=== PATIENT | male | born 1960 | race Caucasian/White ===

== ENCOUNTER 2018-06-26 12:34 | Inpatient (IN) | payer OTHER ==
[2018-06-26 14:05] VITALS: BMI 30.7
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
[2018-06-26] MEDS ORDERED: MENTHOL/PHENOL 1 EACH UD MM PRN (19:57)
[2018-06-26] MEDS ORDERED: MAGNESIUM CITRATE 300 ML BOTTLE PO PRN (19:57)
[2018-06-26] MEDS ORDERED: METHOCARBAMOL 500 MG TABLET PO PRN (19:57)
[2018-06-26] MEDS ORDERED: MELATONIN 5 MG TABLETS PO PRN (19:57)
[2018-06-26] MEDS ORDERED: MAG HYDROX/AL HYDROX/SIMETH 30 ML UNIT-DOSE CUP PO PRN (19:57)
[2018-06-26] MEDS ORDERED: IBUPROFEN 400 MG TABLET (FP) PO PRN (19:57)
[2018-06-26] MEDS ORDERED: MAGNESIUM HYDROX 2400MG/30ML ORAL SUSPENSION 30 ML CUP PO PRN (19:57)
[2018-06-26] MEDS ORDERED: ACETAMINOPHEN 325 MG TABLET (FP) PO PRN ×2 (19:57)
[2018-06-26] MEDS ORDERED: NICOTINE POLACRILEX 2 MG GUM BUC PRN (19:57)
[2018-06-26] MEDS ORDERED: BISMUTH SUBSALICYLATE 524 MG/30 ML UD PO PRN (19:57)
[2018-06-26] MEDS ORDERED: ALBUTEROL SO4 0.083% IH SOL 2.5 MG/3 ML VIAL.NEB. NEB PRN (19:58)
[2018-06-26] MEDS ORDERED: cloNIDine HCL 0.1 MG TABLET PO PRN (20:00)
[2018-06-26] MEDS: chlordiazePOXIDE HCL 25 MG CAPSULE PO SCH (23:01)
[2018-06-26] MEDS: THIAMINE HCL 100 MG TABLET (FP) PO SCH (23:01)
[2018-06-26] MEDS: hydrOXYzine PAMOATE 25 MG CAPSULE (FP) PO PRN (23:01)
[2018-06-26] MEDS: INSULIN SLIDING SCALE (NOVOLOG) 1 VIAL SQ SCH (23:02)
[2018-06-27] MEDS: chlordiazePOXIDE HCL 25 MG CAPSULE PO SCH ×4 (06:21→22:56)
[2018-06-27] MEDS: INSULIN SLIDING SCALE (NOVOLOG) 1 VIAL SQ SCH ×4 (07:00→23:00)
[2018-06-27] MEDS ORDERED: METHADONE HCL 40 MG DISPERSABLE TABLET PO SCH (10:45)
[2018-06-27 10:53] LABS: HEMATOCRIT 40.6 % (35.4-49); MCH 28.8 pg (25.7-33.7); MEAN CELL VOLUME 90.1 fl (80-96); MEAN PLT VOLUME 11.1 fl (7.5-11.1); PLATELET COUNT 111 K/MM3 (134-434); RDW 14.9 % (11.9-15.9); WHITE BLOOD COUNT 3.9 K/mm3 (4.0-10.0)
[2018-06-27 11:04] LABS: ALBUMIN 2.9 g/dl (3.4-5.0); ALK PHOS 123 U/L (45-117); ANION GAP 4 MMOL/L (8-16); BILIRUBIN,TOTAL 0.7 mg/dL (0.2-1); BLOOD UREA NITROGEN 11 mg/dL (7-18); CHLORIDE 103 mmol/L (98-107); CO2 32 mmol/L (21-32); CREATININE 0.6 mg/dL (0.55-1.3); GLUCOSE,RANDOM 110 mg/dL (74-106); SGOT/AST 105 U/L (15-37); SGPT/ALT 86 U/L (13-61); SODIUM 139 mmol/L (136-145); TOT PROT 6.8 g/dl (6.4-8.2)
[2018-06-27] MEDS ORDERED: METHADONE HCL 40 MG DISPERSABLE TABLET ONE (11:32)
[2018-06-27] MEDS ORDERED: METHADONE HCL 10 MG TABLET ONE (11:32)
[2018-06-27] MEDS: PRENATAL VITAMINS W/ FOLIC ACID TABLET (FP) PO SCH (11:34)
[2018-06-27] MEDS: METHADONE 40 MG, METHADONE 20 MG PO SCH (11:34)
[2018-06-27] MEDS: chlordiazePOXIDE HCL 25 MG CAPSULE PO PRN ×2 (11:34→20:45)
--- NOTE | 2018-06-27 11:58 | PN ---
S CIWA - CIWA Score Nausea/Vomitin Muscle Tremors: 2 Anxiety: 2 Agitation: 2 Paroxysmal Sweats: 2 Orientation: 1-Uncertain about Date Tacttile Disturbances: 2-Mild Itch/Numbness/Burn Auditory Disturbances: 1-Very Mild Visual Disturbances: 1-Very Mild Sensitivity Headache: 2-Mild CIWA-Ar Total Score: 17 BHS Progress Note (SOAP) Subjective: Tremors, sweats, generalized weakness and pain Objective: 06/27/18 11:57 Vital Signs 06/27/18 06/27/18 08:23 09:37 Temperature 98.2 F 97.9 F Pulse Rate 77 94 H Respiratory 18 16 Rate Blood Pressure 140/77 119/59 L Laboratory Last Values WBC 3.9 K/mm3 (4.0-10.0) L 06/27/18 07:45 RBC 4.50 M/mm3 (4.00-5.60) 06/27/18 07:45 Hgb 13.0 GM/dL (11.7-16.9) 06/27/18 07:45 Hct 40.6 % (35.4-49) 06/27/18 07:45 MCV 90.1 fl (80-96) 06/27/18 07:45 MCH 28.8 pg (25.7-33.7) 06/27/18 07:45 MCHC 32.0 g/dl (32.0-35.9) 06/27/18 07:45 RDW 14.9 % (11.9-15.9) 06/27/18 07:45 Plt Count 111 K/MM3 (134-434) L 06/27/18 07:45 MPV 11.1 fl (7.5-11.1) 06/27/18 07:45 Sodium 139 mmol/L (136-145) 06/27/18 07:45 Potassium 4.0 mmol/L (3.5-5.1) 06/27/18 07:45 Chloride 103 mmol/L (98-107) 06/27/18 07:45 Carbon Dioxide 32 mmol/L (21-32) 06/27/18 07:45 Anion Gap 4 MMOL/L (8-16) L 06/27/18 07:45 BUN 11 mg/dL (7-18) 06/27/18 07:45 Creatinine 0.6 mg/dL (0.55-1.3) 06/27/18 07:45 Creat Clearance w eGFR 138.38 (>60) 06/27/18 07:45 POC Glucometer 101 UNITS (80-120) 06/27/18 11:44 Random Glucose 110 mg/dL (74-106) H 06/27/18 07:45 Calcium 8.0 mg/dL (8.5-10.1) L 06/27/18 07:45 Total Bilirubin 0.7 mg/dL (0.2-1) 06/27/18 07:45 AST 105 U/L (15-37) H 06/27/18 07:45 ALT 86 U/L (13-61) H 06/27/18 07:45 Alkaline Phosphatase 123 U/L (45-117) H 06/27/18 07:45 Total Protein 6.8 g/dl (6.4-8.2) 06/27/18 07:45 Albumin 2.9 g/dl (3.4-5.0) L 06/27/18 07:45 Labs noted Assessment: 06/27/18 11:57 Withdrawal sx Plan: Continue detox
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
[2018-06-27] MEDS: THIAMINE HCL 100 MG TABLET (FP) PO SCH (22:14)
[2018-06-28] MEDS ORDERED: METHADONE HCL 40 MG DISPERSABLE TABLET ONE (04:39)
[2018-06-28] MEDS ORDERED: METHADONE HCL 10 MG TABLET ONE (04:39)
[2018-06-28] MEDS: chlordiazePOXIDE HCL 25 MG CAPSULE PO SCH ×2 (06:08→12:40)
[2018-06-28] MEDS: METHADONE 40 MG, METHADONE 20 MG PO SCH (06:08)
[2018-06-28] MEDS: INSULIN SLIDING SCALE (NOVOLOG) 1 VIAL SQ SCH ×2 (07:11→17:14)
[2018-06-28] MEDS: PRENATAL VITAMINS W/ FOLIC ACID TABLET (FP) PO SCH (10:08)
--- NOTE | 2018-06-28 12:04 | PN ---
S CIWA - CIWA Score Nausea/Vomitin-No Nausea/No Vomiting Muscle Tremors: 2 Anxiety: 2 Agitation: 2 Paroxysmal Sweats: 2 Orientation: 0-Oriented Tacttile Disturbances: 0-None Auditory Disturbances: 0-None Visual Disturbances: 0-None Headache: 0-None Present CIWA-Ar Total Score: 8 S Progress Note (SOAP) Subjective: sleepy tired Objective: 06/28/18 12:02 Vital Signs Temperature 98.2 F 06/28/18 09:52 Pulse Rate 82 06/28/18 09:52 Respiratory Rate 20 06/28/18 09:52 Blood Pressure 119/54 L 06/28/18 09:52 O2 Sat by Pulse Oximetry (%) Laboratory Tests 06/26/18 06/27/18 06/27/18 21:45 06:27 07:45 WBC 3.9 L RBC 4.50 Hgb 13.0 Hct 40.6 MCV 90.1 MCH 28.8 MCHC 32.0 RDW 14.9 Plt Count 111 L MPV 11.1 Sodium Potassium Chloride Carbon Dioxide Anion Gap BUN Creatinine Creat Clearance w eGFR POC Glucometer 84 113 Random Glucose Calcium Total Bilirubin AST ALT Alkaline Phosphatase Total Protein Albumin RPR Titer 06/27/18 06/27/18 06/27/18 07:45 07:45 11:44 WBC RBC Hgb Hct MCV MCH MCHC RDW Plt Count MPV Sodium 139 Potassium 4.0 Chloride 103 Carbon Dioxide 32 Anion Gap 4 L BUN 11 Creatinine 0.6 Creat Clearance w eGFR 138.38 POC Glucometer 101 Random Glucose 110 H Calcium 8.0 L Total Bilirubin 0.7 AST 105 H ALT 86 H Alkaline Phosphatase 123 H Total Protein 6.8 Albumin 2.9 L RPR Titer Nonreactive 06/27/18 06/27/18 06/28/18 16:28 21:29 06:55 WBC RBC Hgb Hct MCV MCH MCHC RDW Plt Count MPV Sodium Potassium Chloride Carbon Dioxide Anion Gap BUN Creatinine Creat Clearance w eGFR POC Glucometer 112 82 83 Random Glucose Calcium Total Bilirubin AST ALT Alkaline Phosphatase Total Protein Albumin RPR Titer aaox3 ambulating no acute distress Assessment: 06/28/18 12:03 mild withdrawal Plan: continue detox with modified regimen increase fluids
[2018-06-28] MEDS: chlordiazePOXIDE 5 MG CAPSULE PO SCH (22:05)
[2018-06-28] MEDS: THIAMINE HCL 100 MG TABLET (FP) PO SCH (22:05)
[2018-06-28] MEDS ORDERED: chlordiazePOXIDE HCL 10 MG CAPSULE PO SCH (23:00)
[2018-06-28] MEDS ORDERED: chlordiazePOXIDE HCL 10 MG CAPSULE PO PRN (23:00)
[2018-06-29] MEDS ORDERED: METHADONE HCL 10 MG TABLET ONE (04:58)
[2018-06-29] MEDS ORDERED: METHADONE HCL 40 MG DISPERSABLE TABLET ONE (04:58)
[2018-06-29] MEDS: METHADONE 40 MG, METHADONE 20 MG PO SCH (05:46)
[2018-06-29] MEDS: INSULIN SLIDING SCALE (NOVOLOG) 1 VIAL SQ SCH ×2 (07:35→17:21)
[2018-06-29] MEDS ORDERED: ONDANSETRON *ODT* 4 MG TABLET SL PRN (09:43)
--- NOTE | 2018-06-29 09:49 | PN ---
BHS Progress Note (SOAP) Subjective: nausea/vomiting tired Objective: 06/29/18 09:49 Vital Signs Temperature 98.1 F 06/29/18 08:47 Pulse Rate 75 06/29/18 08:47 Respiratory Rate 18 06/29/18 08:47 Blood Pressure 145/78 06/29/18 08:47 O2 Sat by Pulse Oximetry (%) Laboratory Tests 06/26/18 06/27/18 06/27/18 21:45 06:27 07:45 WBC 3.9 L RBC 4.50 Hgb 13.0 Hct 40.6 MCV 90.1 MCH 28.8 MCHC 32.0 RDW 14.9 Plt Count 111 L MPV 11.1 Sodium Potassium Chloride Carbon Dioxide Anion Gap BUN Creatinine Creat Clearance w eGFR POC Glucometer 84 113 Random Glucose Calcium Total Bilirubin AST ALT Alkaline Phosphatase Total Protein Albumin RPR Titer 06/27/18 06/27/18 06/27/18 07:45 07:45 11:44 WBC RBC Hgb Hct MCV MCH MCHC RDW Plt Count MPV Sodium 139 Potassium 4.0 Chloride 103 Carbon Dioxide 32 Anion Gap 4 L BUN 11 Creatinine 0.6 Creat Clearance w eGFR 138.38 POC Glucometer 101 Random Glucose 110 H Calcium 8.0 L Total Bilirubin 0.7 AST 105 H ALT 86 H Alkaline Phosphatase 123 H Total Protein 6.8 Albumin 2.9 L RPR Titer Nonreactive 06/27/18 06/27/18 06/28/18 16:28 21:29 06:55 WBC RBC Hgb Hct MCV MCH MCHC RDW Plt Count MPV Sodium Potassium Chloride Carbon Dioxide Anion Gap BUN Creatinine Creat Clearance w eGFR POC Glucometer 112 82 83 Random Glucose Calcium Total Bilirubin AST ALT Alkaline Phosphatase Total Protein Albumin RPR Titer 06/28/18 06/29/18 16:43 05:46 WBC RBC Hgb Hct MCV MCH MCHC RDW Plt Count MPV Sodium Potassium Chloride Carbon Dioxide Anion Gap BUN Creatinine Creat Clearance w eGFR POC Glucometer 127 139 Random Glucose Calcium Total Bilirubin AST ALT Alkaline Phosphatase Total Protein Albumin RPR Titer aaox3 ambulating no acute distress Assessment: 06/29/18 09:50 withdrawal sx Plan: continue detox increase fluids tigan IM x one zofran SL prn d/c in am
[2018-06-29] MEDS: PRENATAL VITAMINS W/ FOLIC ACID TABLET (FP) PO SCH (10:43)
[2018-06-29] MEDS: chlordiazePOXIDE 5 MG CAPSULE PO SCH (10:43)
[2018-06-29] MEDS ORDERED: TRIMETHOBENZAMIDE HCL 200MG/2ML INJ IM ONE (11:15)
[2018-06-29] MEDS: THIAMINE HCL 100 MG TABLET (FP) PO SCH (21:57)
[2018-06-29] MEDS: hydrOXYzine PAMOATE 25 MG CAPSULE (FP) PO PRN (21:58)
[2018-06-29] MEDS ORDERED: chlordiazePOXIDE HCL 10 MG CAPSULE PO SCH (23:00)
[2018-06-30] MEDS ORDERED: chlordiazePOXIDE HCL 10 MG CAPSULE PO ONE (05:00)
[2018-06-30] MEDS ORDERED: METHADONE HCL 40 MG DISPERSABLE TABLET ONE (05:57)
[2018-06-30] MEDS ORDERED: METHADONE HCL 10 MG TABLET ONE (05:58)
[2018-06-30] MEDS: METHADONE 40 MG, METHADONE 20 MG PO SCH (05:59)
[2018-06-30] MEDS: INSULIN SLIDING SCALE (NOVOLOG) 1 VIAL SQ SCH (06:18)
--- NOTE | 2018-06-30 08:31 | DS ---
[facility] Detox Discharge Summary Admission Date: 06/26/18 Discharge Date: 06/30/18 - History Present History: Alcohol Dependence, Opioid Dependence, Sedative Dependence - Physical Exam Results Vital Signs: Vital Signs Temperature 98.4 F 06/30/18 06:00 Pulse Rate 79 06/30/18 06:00 Respiratory Rate 18 06/30/18 06:00 Blood Pressure 138/74 06/30/18 06:00 O2 Sat by Pulse Oximetry (%) - Treatment Hospital Course: Detox Protocol Followed, Detoxed Safely, Responded well, Discharged Condition Good, Rehab Referral Accepted - Medication Discharge Medications: Ambulatory Orders Albuterol Sulfate Inhaler - [Ventolin Hfa Inhaler -] 1 - 2 inh PO QID 06/26/18 Fluoxetine HCl [Prozac -] 20 mg PO DAILY 06/26/18 Phenobarbital - [Phenobarbital] 200 mg PO BID 06/26/18 - Diagnosis (1) Alcohol withdrawal Current Visit: Yes Status: Chronic Qualifiers: Complication of substance-induced condition: uncomplicated Qualified Code(s ): F10.230 - Alcohol dependence with withdrawal, uncomplicated (2) Sedative or hypnotic abuse Current Visit: Yes Status: Acute (3) Nicotine dependence Current Visit: Yes Status: Chronic Qualifiers: Nicotine product type: cigarettes Substance use status: uncomplicated Qualified Code(s): F17.210 - Nicotine dependence, cigarettes, uncomplicated (4) Opioid dependence on agonist therapy Current Visit: Yes Status: Chronic - AMA Did Patient Leave Against Medical Advice: No (referred to [facility] outpatient rehab. )
[2018-06-30 09:30] VITALS: BP 157/60; PULSE 90; TEMP 98.2
[2018-06-30] MEDS: PRENATAL VITAMINS W/ FOLIC ACID TABLET (FP) PO SCH (10:24)
== END 2018-06-30 11:12 | disposition home or self-care (01) | DRG 773 ==
LOC: YASAS 12:34 → Y6N 20:29
PROVIDERS: ADMIT Surgery; ATTEND Surgery
PROC: HZ2ZZZZ Detoxification Services for Substance Abuse Treatment (ICD-10-PCS; principal; 2018-06-26)
DX: F10.230 Alcohol dependence with withdrawal, uncomplicated (principal); F13.20 Sedative, hypnotic or anxiolytic dependence, uncomplicated; F11.20 Opioid dependence, uncomplicated; F17.210 Nicotine dependence, cigarettes, uncomplicated; I10 Essential (primary) hypertension; E11.9 Type 2 diabetes mellitus without complications; J44.9 Chronic obstructive pulmonary disease, unspecified; J45.909 Unspecified asthma, uncomplicated; Z86.73 Personal history of transient ischemic attack (TIA), and cerebral infarction without residual deficits; Z99.3 Dependence on wheelchair
CPT/HCPCS: 36415; 80053; 82962; 85027; 86593; 94640

== ENCOUNTER 2019-04-27 16:04 | Inpatient (IN) | payer OTHER ==
[2019-04-27 17:56] VITALS: BMI 29.2
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
[2019-04-27] MEDS ORDERED: MAG HYDROX/AL HYDROX/SIMETH 30 ML UNIT-DOSE CUP PO PRN (19:33)
[2019-04-27] MEDS ORDERED: MELATONIN 5 MG TABLETS PO PRN (19:33)
[2019-04-27] MEDS ORDERED: METHOCARBAMOL 500 MG TABLET PO PRN (19:33)
[2019-04-27] MEDS ORDERED: MAGNESIUM CITRATE 300 ML BOTTLE PO PRN (19:33)
[2019-04-27] MEDS ORDERED: BISMUTH SUBSALICYLATE 524 MG/30 ML UD PO PRN (19:33)
[2019-04-27] MEDS ORDERED: IBUPROFEN 400 MG TABLET (FP) PO PRN (19:33)
[2019-04-27] MEDS ORDERED: ACETAMINOPHEN 325 MG TABLET (FP) PO PRN ×2 (19:33)
[2019-04-27] MEDS ORDERED: MENTHOL/PHENOL 1 EACH UD MM PRN (19:33)
[2019-04-27] MEDS ORDERED: hydrOXYzine PAMOATE 25 MG CAPSULE (FP) PO PRN (19:33)
[2019-04-27] MEDS ORDERED: MAGNESIUM HYDROX 2400MG/30ML ORAL SUSPENSION 30 ML CUP PO PRN (19:33)
[2019-04-27] MEDS: chlordiazePOXIDE HCL 25 MG CAPSULE PO PRN (21:04)
[2019-04-27] MEDS ORDERED: ALBUTEROL SO4 8 GM HFA INHALER IH PRN (22:00)
[2019-04-27] MEDS: chlordiazePOXIDE HCL 25 MG CAPSULE PO SCH (23:22)
[2019-04-27] MEDS: THIAMINE HCL 100 MG TABLET (FP) PO SCH (23:23)
[2019-04-28] MEDS: chlordiazePOXIDE HCL 25 MG CAPSULE PO SCH ×4 (06:08→22:38)
[2019-04-28] MEDS ORDERED: METHADONE HCL 10 MG TABLET PO SCH (08:15)
[2019-04-28] MEDS ORDERED: METHADONE HCL 10 MG TABLET PO ONE (08:19)
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
[2019-04-28 10:22] LABS: HEMATOCRIT 42.2 % (35.4-49); HEMOGLOBIN 14.1 GM/dL (11.7-16.9); MCH 31.4 pg (25.7-33.7); MCHC 33.4 g/dl (32.0-35.9); MEAN CELL VOLUME 94.1 fl (80-96); MEAN PLT VOLUME 10.5 fl (7.5-11.1); PLATELET COUNT 89 K/MM3 (134-434); RBC 4.49 M/mm3 (4.00-5.60); RDW 15.1 % (11.9-15.9); WHITE BLOOD COUNT 3.4 K/mm3 (4.0-10.0)
[2019-04-28] MEDS: FLUoxetine HCL 20 MG CAPSULE PO SCH (10:29)
[2019-04-28] MEDS: PRENATAL VITAMINS W/ FOLIC ACID TABLET (FP) PO SCH (10:29)
[2019-04-28 10:41] LABS: ALBUMIN 2.8 g/dl (3.4-5.0); BILIRUBIN,TOTAL 0.5 mg/dL (0.2-1); BLOOD UREA NITROGEN 10.1 mg/dL (7-18); CALCIUM 8.7 mg/dL (8.5-10.1); CREATININE 0.6 mg/dL (0.55-1.3); POTASSIUM 4.4 mmol/L (3.5-5.1); TOT PROT 6.8 g/dl (6.4-8.2)
--- NOTE | 2019-04-28 10:57 | PN ---
S CIWA - CIWA Score Nausea/Vomitin-No Nausea/No Vomiting Muscle Tremors: 2 Anxiety: 2 Agitation: 2 Paroxysmal Sweats: 2 Orientation: 0-Oriented Tacttile Disturbances: 0-None Auditory Disturbances: 0-None Visual Disturbances: 0-None Headache: 0-None Present CIWA-Ar Total Score: 8 BHS Progress Note (SOAP) Subjective: sweats shakes body aches interrupted sleep agitation Objective: 04/28/19 10:57 Vital Signs Temperature 97.3 F L 04/28/19 09:17 Pulse Rate 87 04/28/19 09:17 Respiratory Rate 18 04/28/19 09:17 Blood Pressure 131/77 04/28/19 09:17 O2 Sat by Pulse Oximetry (%) Laboratory Tests 04/28/19 04/28/19 07:30 07:30 WBC 3.4 L RBC 4.49 Hgb 14.1 Hct 42.2 MCV 94.1 MCH 31.4 MCHC 33.4 RDW 15.1 Plt Count 89 L MPV 10.5 Sodium 138 Potassium 4.4 Chloride 105 Carbon Dioxide 30 Anion Gap 3 L BUN 10.1 Creatinine 0.6 Est GFR (CKD-EPI)AfAm 127.55 Est GFR (CKD-EPI)NonAf 110.05 Random Glucose 87 Calcium 8.7 Total Bilirubin 0.5 AST 94 H ALT 107 H Alkaline Phosphatase 167 H Total Protein 6.8 Albumin 2.8 L labs noted aaox3 ambulating with wheelchair no acute distress elevated ast/alt; will repeat labs Assessment: 04/28/19 11:04 withdrawals Plan: continue detox increase fluids repeats liver enzymes
[2019-04-28] MEDS: THIAMINE HCL 100 MG TABLET (FP) PO SCH (22:39)
[2019-04-29] MEDS: METHADONE HCL 10 MG TABLET PO SCH (05:30)
[2019-04-29] MEDS: chlordiazePOXIDE HCL 25 MG CAPSULE PO SCH ×4 (05:30→22:32)
[2019-04-29 10:22] LABS: SGOT/AST 86 U/L (15-37); SGPT/ALT 95 U/L (13-61)
[2019-04-29] MEDS: FLUoxetine HCL 20 MG CAPSULE PO SCH (10:27)
[2019-04-29] MEDS: PRENATAL VITAMINS W/ FOLIC ACID TABLET (FP) PO SCH (10:27)
[2019-04-29 11:01] LABS: INR 1.01 (0.83-1.09); PROTHROMBIN TIME (PATIENT) 11.9 SEC (9.7-13.0)
--- NOTE | 2019-04-29 12:07 | PN ---
S CIWA - CIWA Score Nausea/Vomitin-No Nausea/No Vomiting Muscle Tremors: 2 Anxiety: 1-Mildly Anxious Agitation: 2 Paroxysmal Sweats: 1-Minimal Palms Moist Orientation: 0-Oriented Tacttile Disturbances: 0-None Auditory Disturbances: 0-None Visual Disturbances: 0-None Headache: 0-None Present CIWA-Ar Total Score: 6 BHS Progress Note (SOAP) Subjective: tired feeling better sweats I want to leave Friday. Objective: 04/29/19 12:04 Vital Signs Temperature 97.9 F 04/29/19 09:26 Pulse Rate 91 H 04/29/19 09:26 Respiratory Rate 19 04/29/19 09:26 Blood Pressure 112/77 04/29/19 09:26 O2 Sat by Pulse Oximetry (%) Laboratory Tests 04/28/19 04/28/19 04/28/19 07:30 07:30 07:30 WBC 3.4 L RBC 4.49 Hgb 14.1 Hct 42.2 MCV 94.1 MCH 31.4 MCHC 33.4 RDW 15.1 Plt Count 89 L MPV 10.5 PT with INR INR Sodium 138 Potassium 4.4 Chloride 105 Carbon Dioxide 30 Anion Gap 3 L BUN 10.1 Creatinine 0.6 Est GFR (CKD-EPI)AfAm 127.55 Est GFR (CKD-EPI)NonAf 110.05 Random Glucose 87 Calcium 8.7 Total Bilirubin 0.5 AST 94 H ALT 107 H Alkaline Phosphatase 167 H Total Protein 6.8 Albumin 2.8 L RPR Titer Nonreactive 04/29/19 04/29/19 08:00 08:00 WBC RBC Hgb Hct MCV MCH MCHC RDW Plt Count MPV PT with INR 11.90 INR 1.01 Sodium Potassium Chloride Carbon Dioxide Anion Gap BUN Creatinine Est GFR (CKD-EPI)AfAm Est GFR (CKD-EPI)NonAf Random Glucose Calcium Total Bilirubin AST 86 H ALT 95 H Alkaline Phosphatase Total Protein Albumin RPR Titer labs noted liver enzymes improving aaox3 ambulating well with wheelchair no acute distress Assessment: 04/29/19 12:05 mild withdrawals Plan: continue with detox will reassess tomorrow; if pt continues with improvement and minimal withdrawals pt may be d/c on Friday. increase fluids
[2019-04-29] MEDS: chlordiazePOXIDE HCL 25 MG CAPSULE PO PRN (19:01)
[2019-04-29] MEDS: THIAMINE HCL 100 MG TABLET (FP) PO SCH (22:33)
[2019-04-30] MEDS ORDERED: chlordiazePOXIDE HCL 10 MG CAPSULE PO PRN
[2019-04-30] MEDS: METHADONE HCL 10 MG TABLET PO SCH (06:20)
[2019-04-30] MEDS: chlordiazePOXIDE HCL 10 MG CAPSULE PO SCH ×4 (06:21→22:29)
[2019-04-30] MEDS ORDERED: ONDANSETRON *ODT* 4 MG TABLET SL PRN (06:40)
[2019-04-30] MEDS ORDERED: guaiFENesin 200 MG/10 ML 10 ML UNIT-DOSE CUPS PO PRN (10:40)
[2019-04-30] MEDS: FLUoxetine HCL 20 MG CAPSULE PO SCH (10:52)
[2019-04-30] MEDS: PRENATAL VITAMINS W/ FOLIC ACID TABLET (FP) PO SCH (10:52)
--- NOTE | 2019-04-30 11:59 | PN ---
[facility] CIWA - CIWA Score Nausea/Vomitin-No Nausea/No Vomiting Muscle Tremors: 1-None Visible, but [place] Anxiety: 1-Mildly Anxious Agitation: 1-Slight > Activity Paroxysmal Sweats: No Perspiration Orientation: 0-Oriented Tacttile Disturbances: 0-None Auditory Disturbances: 0-None Visual Disturbances: 0-None Headache: 0-None Present CIWA-Ar Total Score: 3 BHS Progress Note (SOAP) Subjective: cough Objective: 04/30/19 11:58 Vital Signs Temperature 97.3 F L 04/30/19 09:53 Pulse Rate 89 04/30/19 09:53 Respiratory Rate 19 04/30/19 09:53 Blood Pressure 131/85 04/30/19 09:53 O2 Sat by Pulse Oximetry (%) aaox3 ambulating no acute distress Assessment: 04/30/19 11:59 mild withdrawals Plan: continue detox d/c in am
[2019-04-30 21:36] VITALS: PULSE 84
[2019-04-30] MEDS: THIAMINE HCL 100 MG TABLET (FP) PO SCH (22:29)
[2019-05-01] MEDS ORDERED: chlordiazePOXIDE HCL 10 MG CAPSULE PO SCH (05:00)
[2019-05-01] MEDS ORDERED: chlordiazePOXIDE HCL 10 MG CAPSULE PO ONE (06:00)
[2019-05-01] MEDS: METHADONE HCL 10 MG TABLET PO SCH (06:38)
[2019-05-01 07:05] VITALS: BP 143/71; TEMP 97.7
--- NOTE | 2019-05-01 13:45 | DS ---
[facility] Detox Discharge Summary Admission Date: 04/27/19 Discharge Date: 05/01/19 - History Present History: Alcohol Dependence, MMTP Additional Comments: Pt is a 59 y/o male admitted to detox and scheduled to d/c today. Pt discharged directed. Pertinent Past History: Asthma COPD DM(no med) HTN(no med) Hx CVA Hx Seizure Disorder(no current med) Depression Anxiety Disorder - Physical Exam Results Vital Signs: Vital Signs Temperature 97.7 F 05/01/19 07:05 Pulse Rate 84 05/01/19 07:05 Respiratory Rate 18 05/01/19 07:05 Blood Pressure 143/71 05/01/19 07:05 O2 Sat by Pulse Oximetry (%) Alert o x 3 nad oob(seen on wheelchair on way out of the unit with escort on d/c). Pertinent Admission Physical Exam Findings: Laboratory Tests 04/28/19 04/28/19 04/28/19 07:30 07:30 07:30 WBC 3.4 L RBC 4.49 Hgb 14.1 Hct 42.2 MCV 94.1 MCH 31.4 MCHC 33.4 RDW 15.1 Plt Count 89 L MPV 10.5 PT with INR INR Sodium 138 Potassium 4.4 Chloride 105 Carbon Dioxide 30 Anion Gap 3 L BUN 10.1 Creatinine 0.6 Est GFR (CKD-EPI)AfAm 127.55 Est GFR (CKD-EPI)NonAf 110.05 Random Glucose 87 Calcium 8.7 Total Bilirubin 0.5 AST 94 H ALT 107 H Alkaline Phosphatase 167 H Total Protein 6.8 Albumin 2.8 L RPR Titer Nonreactive 04/29/19 04/29/19 08:00 08:00 WBC RBC Hgb Hct MCV MCH MCHC RDW Plt Count MPV PT with INR 11.90 INR 1.01 Sodium Potassium Chloride Carbon Dioxide Anion Gap BUN Creatinine Est GFR (CKD-EPI)AfAm Est GFR (CKD-EPI)NonAf Random Glucose Calcium Total Bilirubin AST 86 H ALT 95 H Alkaline Phosphatase Total Protein Albumin RPR Titer - Treatment Hospital Course: Detox Protocol Followed, Detoxed Safely, Responded well, Discharged Condition Good, Rehab Referral Accepted (Declined as per counselor's note. pt wants to go to [facility].) Patient has Accepted a Rehab Referral to: Pt going back to [facility] - Medication Discharge Medications: Ambulatory Orders Albuterol Sulfate Inhaler - [Ventolin Hfa Inhaler -] 1 - 2 inh PO QID 06/26/18 Fluoxetine HCl [Prozac -] 40 mg PO DAILY 06/26/18 Phenobarbital - [Phenobarbital] 200 mg PO BID 06/26/18 Lorazepam [Ativan] 1 mg PO DAILY 04/27/19 Zolpidem Tartrate [Ambien] 10 mg PO HS 04/27/19 - Diagnosis (1) Alcohol dependence, uncomplicated Status: Acute (2) CVA (cerebral vascular accident) Status: Resolved Qualifiers: Laterality of affected vessel: unspecified (3) Diabetes mellitus Status: Chronic (4) Asthma Status: Chronic Qualifiers: Asthma severity: unspecified severity Asthma persistence: unspecified Asthma complication type: uncomplicated Qualified Code(s): J45.909 - Unspecified asthma, uncomplicated (5) COPD (chronic obstructive pulmonary disease) Status: Chronic Qualifiers: Emphysema type: unspecified (6) HTN (hypertension) Status: Chronic Qualifiers: Hypertension type: essential hypertension Qualified Code(s): I10 - Essential (primary) hypertension (7) Nicotine dependence Status: Chronic Qualifiers: Nicotine product type: cigarettes Substance use status: in withdrawal Qualified Code(s): F17.213 - Nicotine dependence, cigarettes, with withdrawal (8) Seizure disorder Status: Chronic - AMA Did Patient Leave Against Medical Advice: No
[2019-05-02] MEDS ORDERED: chlordiazePOXIDE HCL 10 MG CAPSULE PO ONE (05:00)
== END 2019-05-01 08:10 | disposition home or self-care (01) | DRG 773 ==
LOC: YASAS 16:04 → Y6N 19:48
PROVIDERS: ADMIT Allergy & Immunology; ATTEND Allergy & Immunology
PROC: HZ2ZZZZ Detoxification Services for Substance Abuse Treatment (ICD-10-PCS; principal; 2019-04-27)
DX: F10.230 Alcohol dependence with withdrawal, uncomplicated (principal); F10.220 Alcohol dependence with intoxication, uncomplicated; F10.280 Alcohol dependence with alcohol-induced anxiety disorder; F10.282 Alcohol dependence with alcohol-induced sleep disorder; F11.20 Opioid dependence, uncomplicated; F17.213 Nicotine dependence, cigarettes, with withdrawal; F33.2 Major depressive disorder, recurrent severe without psychotic features; I10 Essential (primary) hypertension; E11.9 Type 2 diabetes mellitus without complications; J44.9 Chronic obstructive pulmonary disease, unspecified; G40.909 Epilepsy, unspecified, not intractable, without status epilepticus; E66.9 Obesity, unspecified; Z68.29 Body mass index [BMI] 29.0-29.9, adult; Z86.73 Personal history of transient ischemic attack (TIA), and cerebral infarction without residual deficits; Z91.013 Allergy to seafood
CPT/HCPCS: 36415; 80053; 84450; 84460; 85027; 85610; 86593; Q0162